=== PATIENT | male | born 2000 | race Caucasian/White ===

== ENCOUNTER 2018-09-05 10:16 | Emergency (ER) | payer OTHER ==
--- NOTE | 2018-09-05 11:01 | RAD ---
RIGHT HAND 3 VIEWS: HISTORY: Injury with pain. FINDINGS: Minimal soft tissue swelling of the middle finger. No fracture, dislocation, or other acute process. IMPRESSION: Unremarkable right hand other than minimal soft tissue swelling of the middle finger. POS: C
== END 2018-09-05 10:48 | disposition home or self-care (01) ==
LOC: NAV ERS 10:16
DX: S60.131A Contusion of right middle finger with damage to nail, initial encounter (principal); Z79.899 Other long term (current) drug therapy; W23.0XXA Caught, crushed, jammed, or pinched between moving objects, initial encounter
CPT/HCPCS: 99001

== ENCOUNTER 2020-10-25 07:14 | Emergency (ER) | payer BC, MEDICAID, SELFPAY ==
[2020-10-25] MEDS ORDERED: Ondansetron PF 4 MG/2 ML Vial ONE (07:36)
[2020-10-25] MEDS ORDERED: Boostrix 0.5 ML (Tdap) VIAL ONE (07:36)
[2020-10-25] MEDS ORDERED: CEFAZOLIN 1 GM VIAL ONE (07:36)
[2020-10-25] MEDS ORDERED: Morphine 4 MG/ML VIAL ONE (07:36)
[2020-10-25] MEDS ORDERED: Sodium Chloride 0.9% 200 ML ONE (07:36)
[2020-10-25 07:39] LABS: #Basophils 0.2 thou/uL (0.0-0.2); #Eosinphils 0.2 thou/uL (0.0-0.7); #Lymphocytes 3.7 thou/uL (1.20-3.40); #Neutrophils 5.6 thou/uL (1.40-6.50); %Basophils 1.5 % (0.0-1.0); %Eosinophils 1.5 % (0.0-10.0); %Lymphocytes 34.8 % (21.0-51.0); %Monocytes 9.3 % (0.0-10.0); Hemoglobin 17.1 g/dL (14.0-18.0); Mean Corpuscular Hemoglobin 30.9 pg (27.0-31.0); Mean Corpuscular Volume 93.7 fL (78.0-98.0); Mean Platelet Volume 8.7 fL (7.4-10.4); Platelet Count 361 thou/uL (130-400); Red Blood Cell (RBC) Count 5.53 mill/uL (4.70-6.10); White Blood Cell (WBC) Count 10.5 thou/uL (4.8-10.8)
[2020-10-25 07:54] LABS: ALT (SGPT) 23 U/L (8-55); AST (SGOT) 21 U/L (5-34); Albumin 4.8 g/dL (3.5-5.0); Alkaline Phosphatase 68 U/L (40-110); Anion Gap 19 mmol/L (10-20); BUN (Urea Nitrogen) 10 mg/dL (8.9-20.6); Bilirubin, Total 0.4 mg/dL (0.2-1.2); Calc. Creatinine Clearance 0 mL/min (70-130); Calcium 9.6 mg/dL (7.8-10.44); Carbon Dioxide 20 mmol/L (22-29); Chloride 104 mmol/L (98-107); Globulin 3.5 g/dL (2.4-3.5); Glucose 100 mg/dL (70-105); Potassium 3.4 mmol/L (3.5-5.1); Protein, Total 8.3 g/dL (6.0-8.3); Sodium 140 mmol/L (136-145)
== END 2020-10-25 09:29 | disposition home or self-care (01) ==
LOC: NAV ERS 07:14
DX: S31.030A Puncture wound without foreign body of lower back and pelvis without penetration into retroperitoneum, initial encounter (principal); R00.0 Tachycardia, unspecified; J45.909 Unspecified asthma, uncomplicated; F17.210 Nicotine dependence, cigarettes, uncomplicated; Z23 Encounter for immunization; W34.00XA Accidental discharge from unspecified firearms or gun, initial encounter
CPT/HCPCS: 71046; 74177; 80053; 85025; 90471; 90715; 96365; 96375; J0690; J2270; J2405; J3490